=== PATIENT | female | born 1980 | race Caucasian/White ===

== ENCOUNTER 2016-08-25 10:43 | Day surgery (SDC) | payer OTHER ==
[~2016-08-25] VITALS: Ht 162.6 cm; Wt 75.0 kg
[~2016-08-25 10:43] MED LIST: 0.9% Sodium Chloride 1,000 ML IV SCH; BACL10TA PO; CITA40TA13 PO; LORA1TAB PO; PANT40TA3 PO; Sodium Chloride LOK Flush 10 mL Syringe IV PRN; TRAZ-118 PO; fentaNYL-PF 50 mCg/mL 2 mL Inj IVPUSH PRN
[2016-08-25] MEDS ORDERED: fentaNYL-PF 50 mCg/mL 2 mL Inj ONE (10:44)
[2016-08-25] MEDS ORDERED: Propofol 10,000 mCg/mL 20 mL Inj ONE (10:44)
[2016-08-25 10:53] VITALS: BP 124/69; PULSE 94; RESP 16; O2SAT 97
[2016-08-25] MEDS ORDERED: Lactated Ringer's 1,000 ML IV ONE (11:04)
--- NOTE | 2016-08-25 11:06 | PCM.HPANE ---
Patient Data Surgeon Admitting Provider: Attending Provider:Anant Velazco MD Primary Care Physician:Ellis Mtz MD Other Provider: Reason for Visit Epigastric Abdominal Pain Ht/WT & BMI Height (Feet): 5 Height (Inches): 4 Weight (Kilograms): 75 Body Mass Index 28.00 Allergies Coded Allergies: hydromorphone (Verified Allergy, Mild, itching, 08/24/16) Uncoded Allergies: DILAUDED (Allergy, Severe, itching, 04/05/12) Past Anesthesia History Anesthesia History: Denies:: Abnormal Airway, Anesthesia Reactions, Difficult Intubation, Fam Anesthesia Reaction, Fam Malignant Hypertherm, Malignant Hyperthermia Diabetes History Hx Diabetes?: No MRSA MRSA: No Medications Reported Medications Lorazepam 1 Mg Tablet1 Mg PO TID PRN For Anxiety Ref 0 08/24/16 Citalopram 40 Mg [id number] Mg PO DAILY 30 Days Ref 0 08/24/16 Trazodone 100 Mg Jaybyo336 Mg PO HS Ref 0 08/24/[address] 40 Mg Tablet.dr40 Mg PO DAILY Ref 0 08/24/16 Baclofen 10 Mg [id number] Mg PO HS Ref 0 08/24/16 Discontinued Reported Medications Trazodone-Expunged Drug, Do Not Renew! 100 Mg [id number] Mg PO HS #30 TAB 07/02/12 Bupropion-Expunged Drug, Do Not Renew! 100 Mg Tablet1 Tab PO BID #60 TAB TAKE WITH FOOD 07/02/12 Citalopram-Expunged Drug, Do Not Renew! 40 Mg Pmsroq85 Mg PO DAILY 07/02/12 Discontinued Scripts Naproxen 500 Mg Ltp605 Mg PO BID PRN For Pain #20 TABLET Prov:Joel Vera DO 05/22/16 Hydrocodone-Acetaminophen 7.5-325 mg 1 Each Tablet1-2 Tablet PO Q6H PRN For Pain #30 TABLET Ref 0 Prov:Rivera Koehler MD 09/30/15 History History of ENT Problems?: No HEENT History: Denies:: Abnormal Airway Difficult Intubation Dysphagia Hearing Problem Teeth Condition: Missing Teeth Hx of Heart Problems?: No Cardiovascular History: Denies:: Congestive Heart Failure Hypertension Hx of Respiratory Problem?: No Hx Neurologic Problems?: No Neurological History: Denies:: CVA Hx of GI Problems?: Yes Gastrointestinal History: Positive for:: Gastroesphageal Reflux Liver Disease (MRI SHOWS ENLARGED LIVER) Rectal Bleeding Denies:: Cirrhosis Diverticulitis Gall Bladder Disease Hiatal Hernia Female Hx: Denies:: Currently (TUBAL LIGATION) Hx Musculoskeletal Problems?: No Musculoskeletal History: Denies:: Fibromyalgia Joint Replacement Psycho Social History: Positive for:: Anxiety Hx Depression Hx Surgeries?: Yes (c section, anal fissure, TUBAL LIGATION) Hx Any Other Health Problems?: Yes Hx Diabetes: No Hx Alcohol Use: Yes Smoking Status: Current Every Day Smoker Have You Smoked inLast 12 mo: Yes Stop/Bang Treated for Sleep Apnea?: No Do You Have a CPAP Machine?: No S-Snoring: Do You Snore Loudly: No T-Tired: feel tired, fatigued: Yes O-Obsered: Observed not breath: No P-Blood Pressure: treated: No B- Body Mass Index > 35 kg/m2: No A- Age over 50: No N- Neck Large Circumference: No G- Gender Male: No TYLER Total Score: 1 Risk Assessment Category Category 1A: Patient has history of documented sleep apnea, and HAS NOT received any narcotic, sedative or anesthesia administration during this stay. Category 1B: Patient has history of documented sleep apnea, and HAS received any narcotic , sedative or anesthesia administration during this stay Category 2: Patient has SUSPECTED Obstructive Sleep Apnea, and HAS received any narcotic , sedative or anesthesia administration during this stay. Category 3: Patient has SUSPECTED Obstructive Sleep Apnea and HAS NOT received narcotic, sedative or anesthesia administration during this stay. Category 4: Outpatient in Procedural Areas with known sleep apnea or who screen positive for High Risk via the STOP/BANG questionnaire. Exam Exam Vital Signs Vital Signs Date Time Temp Pulse Resp B/P Pulse Ox O2 Delivery O2 Flow Rate FiO2 08/25/16 10:53 36.6 94 16 124/69 97 Room Air General Appearance: Alert, Oriented X3, Cooperative, No Acute Distress HEENT/AIRWAY: MP 2 Lungs: Clear to Auscultation Heart: Exam Unremarkable Plan Impression Patient chart reviewed, patient interviewed and anesthestic plan with risks, benefits, and alternatives discussed, and informed consent obtained. ASA Physical Status: ASA2 Mod Systemic Disease Anesthetic Plan: MAC Bene/Risks/Altern/Consents: Yes HP Complete Prior to Induction: Yes Crow Boogie MD Aug 25, 2016 11:06
[2016-08-25] MEDS: Lactated Ringer's 1,000 ML IV ONE ×2 (11:18→11:25)
[2016-08-25 11:29] VITALS: BP 102/50; PULSE 60; RESP 16; O2SAT 92
[2016-08-25 11:36] VITALS: BP 112/62; PULSE 59; RESP 16; O2SAT 96
[2016-08-25 11:45] VITALS: BP 106/73; PULSE 59; RESP 16; O2SAT 97
--- NOTE | 2016-08-25 11:47 | ENDO ---
[address] [address] ENDOSCOPY PROCEDURE PATIENT: ALEXSANDER AVALOS : 1980 MR#: [id number] ADMIT: 08/25/2016 JOB ID: [id number] DATE: 08/25/2016 TYPE OF OPERATION: Esophagogastroduodenoscopy with biopsy. PREOPERATIVE DIAGNOSIS(ES): Epigastric pain. POSTOPERATIVE DIAGNOSIS(ES): Mild nonerosive gastritis. ANESTHESIA: Monitored anesthesia care. COMPLICATIONS: None. BLOOD LOSS: Minimal. DESCRIPTION OF PROCEDURE: After risks and benefits were explained to the patient, informed consent was obtained. After anesthesia administered, upper endoscope was then inserted into the mouth intubating to the esophagus, stomach, second portion of duodenum. Mucosa carefully examined. After procedure was done, the scope withdrawn and procedure terminated. FINDINGS: Upon inspection of the esophagus, the esophagus was normal without masses, ulcers, or lesions. The Z-line located 40 cm from incisors. Upon entering the stomach, there was some mild nonerosive gastritis that was seen. No masses, ulcers, or lesions were recognized. Retroflexion was normal. Duodenal bulb, first and second portion were normal. Biopsy taken of antrum and body of the stomach. IMPRESSION: Mild nonerosive gastritis. RECOMMENDATIONS: 1. Await pathology results. 2. Followup in GI clinic as needed.
--- NOTE | 2016-08-25 12:30 | PCM.ANEP2 ---
Post Anesthesia Evaluation ASA/CMS Post Anesthesia VS in Patient's Normal Range?: Yes Resp Stable; Airway Patent?: Yes CV Function & Hydration Stable: Yes Mental Status Recovered?: Yes Pain control Satisfactory?: Yes N/V Control Satisfactory?: Yes Crow Boogie MD Aug 25, 2016 12:30
--- NOTE | 2016-08-28 12:21 | PATH ---
SURGICAL PATHOLOGY Attending Physician:Anant Velazco MD CASE STATUS: Signed Out PATIENT NAME: ALEXSANDER AVALOS PID: [id number] : 1980 DATE COLLECTED:08/25/2016 19:58 SPECIMEN: 1: Stomach, Antrum, Biopsy 2: Gastric, Biopsy CLINICAL HISTORY: ABDOMEN PAIN 1). ANTRUM BIOPSY 2). GASTRIC BODY BIOPSY FINAL DIAGNOSIS: 1.ANTRUM BIOPSY: SUPERFICIAL MUCOSAL HYPEREMIA WITHOUT ASSOCIATED SIGNIFICANT INFLAMMATION INVOLVING ANTRAL MUCOSA. Negative for evidence of Helicobacter. Negative for intestinal metaplasia. Negative for dysplasia and malignancy. 2.GASTRIC BODY BIOPSY: MUCOSAL HYPEREMIA WITHOUT ASSOCIATED SIGNIFICANT INFLAMMATION INVOLVING GASTRIC FUNDIC MUCOSA. Negative for evidence of Helicobacter. Negative for intestinal metaplasia. Negative for dysplasia and malignancy. ICD10 code R10.9 GROSS DESCRIPTION: The specimen is received in two formalin filled containers labeled with the patient's name. 1). The specimen is sublabeled "antrum" and consists of 2 portions of tissue which aggregate to 0.4 x 0.4 x 0.3 CM. The specimen is entirely submitted in cassette 1A. 2). The specimen is sublabeled "gastric body" and consists of 2 portions of tissue which aggregate to 0.4 x 0.4 x 0.3 CM. The specimen is entirely submitted in cassette 2A. 08/25/2016 [facility] MICRO DESCRIPTION: See diagnosis. ICD-9 CODES: CPT CODES: 1: 16105 2: 84411 Electronically Signed Out Parveen Taylor MD [facility] Pathology [facility] [address], [place] [address] Technical component performed at [facility], [address] [place] [address] Ave[address], , [id number]
== END 2016-08-25 23:59 | disposition home or self-care (01) ==
LOC: END 10:43
PROVIDERS: ATTEND Internal Medicine Gastroenterology
DX: K29.50 Unspecified chronic gastritis without bleeding (principal); K21.9 Gastro-esophageal reflux disease without esophagitis; R10.13 Epigastric pain; F41.9 Anxiety disorder, unspecified; F32.9 Major depressive disorder, single episode, unspecified; F17.210 Nicotine dependence, cigarettes, uncomplicated; Z79.899 Other long term (current) drug therapy
CPT/HCPCS: 43239; J7120